=== PATIENT | male | born 1990 | race Caucasian/White ===

== ENCOUNTER 2024-05-18 09:15 | Outpatient (AMB) | payer OTHER, SELFPAY ==
--- NOTE | 2024-05-18 09:20 | MHC.PC.OV ---
Vital Signs 05/18/24 09:24 Height 6 ft 1 in Weight 227 lb 6 oz BMI 30.0 BP 120/86 Blood Pressure Location Lt brachial Position Sitting Respiration 14 Pulse 84 Pulse Source Pulse Oximeter Pulse Oximetry (%) 97 Oxygen Delivery Method Room Air Intake Visit Reasons: [employer] / Est. care Intake Note: New patient visit Boiler Blower Required: No Allergies No Known Allergies Allergy (Verified 05/18/24 09:20) Tobacco use date assessed: 05/18/24 Dental Screening Dental Screen Date: 05/18/24 Did you have a dental visit in the last 12 months?: Yes Did you have a dental problem in the last 6 months where you did not have access to dental care?: No Was dental information given to patient?: Patient has dentist HPI HPI Comments History of Present Illness Details 33 year old male with past medical history of GERD, seasonal allergies presenting to [facility] care Was following with [facility]. Recommended PPI, consideration of endoscopy. Has lost some weight purposefully, been trying to eat better. Seasonal allergies: Uses flonase. Had a very severe ear infection last year. ROS see HPI PHYSICAL EXAM: GENERAL: Alert and oriented x 3. NAD EYES: EOMI. Anicteric. HENT: Moist mucous membranes. No scleral icterus. No cervical lymphadenopathy. LUNGS: Clear to auscultation bilaterally. CARDIOVASCULAR: Regular rate and rhythm. No murmur. No JVD. ABDOMEN: Soft, non-tender +bs EXTREMITIES: No edema. Non-tender. SKIN: No rashes or lesions. Warm. NEUROLOGIC: No focal neurological deficits. CN II-XII grossly intact PSYCHIATRIC: Cooperative. 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 1. Little interest or pleasure in doing things: not at all 2. Feeling down, depressed, or hopeless: not at all 3. Trouble falling or staying asleep, or sleeping too much: not at all 4. Feeling tired or having little energy: not at all 5. Poor appetite or overeating: not at all 6. Feeling bad about yourself - or that you are a failure or have let yourself or your family down: not at all 7. Trouble concentrating on things, such as reading the newspaper or watching television: not at all 8. Moving or speaking so slowly that other people could have noticed. Or the opposite - being so fidgety or restless that you have been moving around a lot more than usual: not at all 9. Thoughts that you would be better off or of hurting yourself in some way: not at all Total score: 0 Depression Screening Interpretation: Negative Depression Screening Done: Yes 90111 - PHQ-9 Billing: Yes Source: Developed by Drs. Benson Ramirez, Ria Putnam, Reg Solis and colleagues, with an educational delia from [employer]. Thrive Questionnaire Date Thrive assessed: 05/05/24 I am a: Patient What is your living situation today?: I have a steady place to live Within the past 12 months, did the food you bought not last and you didn't have the money to get more?: Never true Within the past 12 months, did you worry whether your food would run out before you got money to buy more?: Never true Do you have trouble paying for medicines?: No Do you have trouble getting transportation to medical appointments?: No Do you have trouble paying your heating and electricity bill?: No Do you have trouble taking care of your child, family member or friend?: No Do you have trouble with day-to-day activities such as bathing, preparing meals, shopping, managing finances, etc.?: No Are you currently unemployed and looking for a job?: No Are you interested in more education?: No Please select the resources that you would like help with: None Currently or been in a relationship where the following occur: No concerns reported THRIVE Score: 0 AUDIT C Alcohol Use Questionnaire (AUDIT-C) 1. How often do you have a drink containing alcohol?: Monthly or less 2. How many drinks containing alcohol do you have on a typical day when you are drinking?: 5 or 6 3. How often do you have six or more drinks on one occasion?: Never Total Score: 3 Physical exam (Primary Care) Vital Signs: Last Vital Signs Pulse 84 05/18/24 09:24 Resp 14 05/18/24 09:24 BP 120/86 05/18/24 09:24 Pulse Ox 97 05/18/24 09:24 Oxygen Delivery Method Room Air 05/18/24 09:24 BMI result Body Mass Index 30.0 Tobacco/Smoking Status: Tobacco use Status Tobacco use date assessed 05/18/24 05/18/24 09:28 Patient Tobacco Use Status Former Tobacco user 05/18/24 09:38 e-Cigarette/Vaping Use Former Use 05/18/24 09:38 PHQ-9: PHQ-9 Score PHQ-9: Total score 0 05/18/24 09:38 Depression Screening Interpretation: Negative Thrive Assessment: Date of Thrive Assessment Date Thrive assessed 05/05/24 05/18/24 09:21 Currently or been in a relationship where the following occur: No concerns reported Coding Level of Care Code New Pt Level 4 (60813) Complex EM visit Add On G2211 Diagnoses Encounter to establish care Z76.89 Gastroesophageal reflux disease, unspecified whether esophagitis present K21.9 Esophagitis presence: esophagitis presence not specified Additional Codes PHQ-9 - 33323 - PHQ-9 Billing: Yes ([id number]) Assessment & Plan Assessment & Plan (1) Encounter to establish care: Code(s): Z76.89 - Persons encountering health services in other specified circumstances Category: Medical Plan: 33 year old male to establish care. past medical, surgical, social and family history reviewed. chart updated (2) GERD (gastroesophageal reflux disease): Code(s): K21.9 - Gastro-esophageal reflux disease without esophagitis Category: Medical Qualifiers: Esophagitis presence: esophagitis presence not specified Qualified Code(s): K21.9 - Gastro-esophageal reflux disease without esophagitis Plan: check stool h pylori. consider endoscopy. continue ppi Orders: Orders Complete Blood Count Auto Diff Today J30.2 - Other seasonal allergic rhinitis, Z13.0 - Encounter for screening for diseases of the blood and blood-forming organs and certain disorders involving the immune mechanism, Z13.220 - Encounter for screening for lipoid disorders, Z13.228 - Encounter for screening for other metabolic disorders Lipid Panel Today J30.2 - Other seasonal allergic rhinitis, Z13.0 - Encounter for screening for diseases of the blood and blood-forming organs and certain disorders involving the immune mechanism, Z13.220 - Encounter for screening for lipoid disorders, Z13.228 - Encounter for screening for other metabolic disorders Comprehensive Met. Panel Today J30.2 - Other seasonal allergic rhinitis, Z13.0 - Encounter for screening for diseases of the blood and blood-forming organs and certain disorders involving the immune mechanism, Z13.220 - Encounter for screening for lipoid disorders, Z13.228 - Encounter for screening for other metabolic disorders H pylori Ag Stool Today K21.9 - Gastro-esophageal reflux disease without esophagitis Medications: New fluticasone propionate 50 mcg/actuation (Flonase Allergy Relief) administer into each nostril 2 sprays intranasal DAILY 16 grams 3RF
[2024-05-18 09:24] VITALS: BP 120/86; PULSE 84; RESP 14; O2SAT 97
== END 2024-05-18 09:55 | disposition home or self-care (01) ==
PROVIDERS: PCP Internal Medicine; Visit Provider Internal Medicine
DX: Z76.89 Persons encountering health services in other specified circumstances (principal); K21.9 Gastro-esophageal reflux disease without esophagitis

== ENCOUNTER → 2024-05-18 09:15 | Outpatient (BNVA) | payer OTHER, SELFPAY | PROVIDERS: PCP Internal Medicine; Visit Provider Internal Medicine | DX: K21.9 Gastro-esophageal reflux disease without esophagitis (principal); J30.2 Other seasonal allergic rhinitis; Z13.0 Encounter for screening for diseases of the blood and blood-forming organs and certain disorders involving the immune mechanism; Z76.89 Persons encountering health services in other specified circumstances; Z13.228 Encounter for screening for other metabolic disorders; Z13.220 Encounter for screening for lipoid disorders | CPT/HCPCS: 96127 ==

== ENCOUNTER 2024-05-18 09:57 | Outpatient (REF) | payer OTHER, SELFPAY ==
[2024-05-18 11:08] LABS: MANUAL DIFF FLAG NO
[2024-05-18 11:15] LABS: Basophils Absolute Auto 0.1 X10*3/uL (0.0-0.2); Eosinophils Percent Auto 0.7 % (0-4); Hematocrit 45.9 % (42.0-52.0); Hemoglobin 15.9 g/dl (14.0-18.0); Imm Gran Abs Auto 0.01 X10*3/uL (0.00-0.03); Imm Gran Pct Auto 0.2 % (0.0-0.4); Lymphocytes Absolute Auto 2.1 X10*3/uL (1.2-4.9); Lymphocytes Percent Auto 34.9 % (20-40); Mean Corpuscular HGB Conc 34.6 g/dl (31.0-36.0); Mean Corpuscular Hemoglobin 30.2 pg (27.0-33.0); Mean Corpuscular Volume 87.3 fL (80.0-98.0); Mean Platelet Volume 10.3 fL (9.4-12.4); Monocytes Absolute Auto 0.5 X10*3/uL (0.1-1.2); Monocytes Percent Auto 8.5 % (2-11); Neutrophils Absolute Auto 3.3 x10*3/uL (2.0-8.3); Neutrophils Percent Auto 54.7 % (45-73); Platelet Count 263 X10*3/uL (160-400); Red Blood Count 5.26 X10*6/uL (4.60-5.80); Red Cell Distribution Width 11.9 % (11.0-16.0)
[2024-05-18 11:43] LABS: Alanine Aminotransferase 49 U/L (0-40); Albumin Level 4.7 g/dL (3.5-5.0); Alkaline Phosphatase 61 U/L (39-117); Anion Gap 11 (12-20); Aspartate Amino Transferase 29 U/L (5-37); Bilirubin Total 0.6 mg/dL (0.0-1.0); Blood Urea Nitrogen 19 mg/dL (9-16); Calcium 9.9 mg/dL (8.4-10.2); Carbon Dioxide 27 mmol/L (22-29); Chloride 108 mmol/L (96-108); Cholesterol 180 mg/dL (<200); Estimated Glomerular Filt Rate > 60; Glucose Random 92 mg/dL (60-115); HDL Cholesterol 42 mg/dL (>40); LDL Cholesterol Calculated 125 mg/dL (<100); Potassium 4.3 mmol/L (3.3-5.1); Sodium 142 mmol/L (135-145); Total Protein 7.9 g/dL (6.5-8.0); Triglycerides 65 mg/dL (<150)
== END 2024-05-18 09:58 | disposition home or self-care (01) ==
LOC: HO.WFDLDS 09:57
PROVIDERS: Visit Provider Internal Medicine
DX: Z13.0 Encounter for screening for diseases of the blood and blood-forming organs and certain disorders involving the immune mechanism (principal); Z13.220 Encounter for screening for lipoid disorders; Z13.228 Encounter for screening for other metabolic disorders; J30.2 Other seasonal allergic rhinitis; K21.9 Gastro-esophageal reflux disease without esophagitis
CPT/HCPCS: 36415; 80053; 80061; 85025

== ENCOUNTER 2024-06-03 | Outpatient (REF) | payer OTHER, SELFPAY ==
--- OUTSIDE RECORDS SUMMARY | 2024-06-08 16:24 | XMS_ITS | Data Portability ---
Author Organization [facility], [id number] Address [address] [place] [address] Assessment No assessment recorded. Plan of Treatment Reminders Order Date Submit Date Provider Last Modified By Organization Details Last Modified Time Details Appointments None recorded. Lab None recorded. Referral None recorded. Procedures None recorded. Surgeries None recorded. Imaging None recorded. Medication Orders Flonase Allergy Relief 50 mcg/actuati on nasal spray,suspe nsion 2023 024 [email or web address] [facility]/Pharmacy #[id number], [address] [place], [address], 4 13:50:07 prednisone 50 mg tablet 2023 024 [facility]/Pharmacy #1234, [address] [place], [address], 4 08:49:09 Augmentin 875 mg-125 mg tablet 2023 024 [facility]/Pharmacy #1234, [address] [place], [address], 4 08:39:05 Patient TargetsNo targets recorded. Patient Instructions Encounter Date Encounter Id Patient Instructions Last Modified By Organization Details Last Modified Time 10/17/2023 [id number] Acute Sinusitis: Care Instructions silvia Not available 10/17/2023 08:39:03 10 things to do when you have covid-19 silvia Not available 10/17/2023 08:39:02 Reason for Referral None Reported. Problems Name Problem SNOMED Code Status Onset Date Resolution Date Notes Provider Name and Address Organization Details Recorded Time Gastroesophag eal reflux disease 232433020 Active JOSE LUIS CHERI maria, [place] - [facility] 4 08:19:02 Acute sinusitis 75257861 Active 2023 Paty Perez, ALEKSANDRA [address] , [place], [address], [place] - [facility] 4 08:35:38 Acute bilateral otitis media 258851512 Active 2023 Paty Perez NP [address] , [place], [address], [place] - [facility] 4 08:35:49 Post-acute COVID-19 3402752069 Active 2023 Paty Perez, ALEKSANDRA [address] , [place], [address], [place] - [facility] 4 08:36:18 Problem Notes None recorded. Medical Equipment None Reported. Allergies No known drug allergies Medications Name Sig Start Date Stop Date Status Note LastModified by Organization Details LastModified Time omeprazole 40 mg capsule,israel yed release TAKE 1 CAPSULE 30-60 MINUTES BEFORE BREAKFAST active Not Available Not Available No t Available famotidine 20 mg tablet active Not Available Not Available Not Available prednisone 50 mg tablet TAKE 1 TABLET EVERY DAY BY ORAL ROUTE FOR 5 DAYS, FOR SINUSITIS. active Not Available Not Available N ot Available nystatin 100,000 unit/gram topical powder APPLY THREE TIMES DAILY TO RASH. active Not Available Not Available No t Available ondansetron 4 mg disintegrati ng tablet active Not Available Not Available No t Available fluticasone propionate 50 mcg/actuatio n nasal spray,suspen cecille SPRAY 1 SPRAY BY INTRANASAL ROUTE EVERY DAY FOR 10 DAYS active Not Available Not Available No t Available amoxicillin 875 mg-potassium clavulanate 125 mg tablet TAKE 1 TABLET EVERY 12 HOURS BY ORAL ROUTE FOR 10 DAYS, FOR EAR INFECTION. active Not Available Not Available N ot Available omeprazole active Not Available Not Av ailable Not Available Vitals Date Recorded Body height Body mass index (BMI) Body weight Oxygen saturation Oxygen saturation in Arterial blood by Pulse oximetry Heart rate Respiratory rate Body temperature Systolic blood pressure Diastolic blood pressure Provider Name and Address Organization Details Last Updated DateTime 4 185.42 cm 29 kg/m2 43525.3 2 g 98 % 98 % 82 /min 18 /min 98 [degF] 128 mm[Hg] 82 mm[Hg] JOSE LUIS Aguillon [facility] 4 08:20:45 Social History Question Answer Notes LastModified by Organizat ion Details LastModified Time Tobacco Smoking Status Never Smoker KEVEN Caba [facility] 10/17/2023 08:19:10 What Is Your Level Of Alcohol Consumption? Occasional Information not available 10/17/2023 Do You Use Any Illicit Or Recreational Drugs? No Information not available 10/17/2023 Do You Or Have You Ever Used Any Other Forms Of Tobacco Or Nicotine? No Information not available 10/17/2023 Sex: Unknown Functional Status None recorded. Mental Status None recorded. Family History Nothing Reported. Medical History No medical history recorded. Immunizations Vaccine Type Date Status Note Provider Nam e and Address Organization Details Recorded Time COVID-19, mRNA, LNP-S, PF, 100 mcg/0.5mL dose or 50 mcg/0.25mL dose 07/08/2020 completed KEVEN Caba - [facility] 10/17/2023 08:14:31 COVID-19, mRNA, LNP-S, PF, 100 mcg/0.5mL dose or 50 mcg/0.25mL dose 08/06/2020 completed KEVEN Caba - [facility] 10/17/2023 08:14:31 Past Encounters Encounter ID Performer Location Encounter Start Date Encounter Closed Date Diagnosis/Indication Diagnosis SNOMED-CT Code Diagnosis ICD10 Code Diagnosis Note [id number] [address] [place] [address] 10/10/2017 15:53:05 10/10/2017 17:20:05 [id number] [address] [place] [address] 12/11/2016 12:10:38 12/11/2016 13:15:36 [id number] [address] [place] [address] 03/10/2016 08:21:28 03/10/2016 08:47:59 [id number] Paty Perez, ALEKSANDRA [address] [address] 10/17/2023 08:04:57 10/17/2023 08:40:08 Acute sinusitis [id number] J01.90 Based on your Presentati on, Exam, and Lab Testing you are being diagnosed with otitis media Antibiotic s will typically take 4-5 days to start to work with symptom improvemen t. The following are my other recommenda tions to help with symptoms and is important for this diagnosis: 1. Take Ibuprofen or Tylenol if you do not have any allergies to these medication s. If you take a blood thinner you should not take NSAIDS like Ibuprofen. These medication will help with the inflammati on in your respirator y tract which should help the cough. (I would alternate between Tylenol 650 mg and your Ibuprofen 600 mg every 4 hours)2. Do not take any Cold Medication s that have a Decongesta nt in it - this will dry out your throat and make the sore throat worse.3. Drinking Hot Tea with honey can help coat and soothe your throat. I would be seen again if you develop any of the following symptoms.1 . Fever > 101.02. Stiff neck - where you can't turn your neck3. Trouble swallowing your saliva - drooling4. Swelling of a lymph node in your throat that is painful to touch5. Difficulty breathing6 . Severe Headache Thank you for using [email or web address] today, please feel free to contact our office if you have any questions or concerns. Acute bila teral otitis media [id number] H66.93 Post-acute COVID-19 1119 125058 U09.9 Health Concerns Section Related Observation LastModified by Organization Detai ls LastModified Time None Recorded Concern Status LastModified by Organization Details LastModified Time None Recorded Advance Directives Directive None Recorded Payers Encounter Date Sequence Insurance Name Policy Number Policy Harrison Covered Member ID Harrison Member ID Guarantor Name 03/10/2016 1 [facility] [id number] Alok Sotelo [id number] 1 Alok Sotelo 12/11/2016 1 [facility] [id number] Alok Sotelo [id number] 1 Alok Sotelo 10/10/2017 1 [facility] [id number] Alok Sotelo [id number] 1 Alok Sotelo 10/17/2023 1 [facility] [id number] Alok Sotelo [id number] Alok Sotelo Notes Date Note Type Note Provider Name and Address Organization Details Recorded Time 10/17/2023 text/html Ear Pain Brief HPIReported bypatient.Location :bilateral Onset/Timing:sudde n onset Duration:constant pain Quality:no itching; no discharge from the ears; no burning;throbbing pain Severity:no fever Context:no recent ear infection; no recent swimming;recent URI Alleviating factors:NSAIDs Aggravating factors:sinus infections Associated Symptoms:no cough; no jaw popping or clicking; no discharge from ear; no sense of fullness; no jaw pain; no tinnitus;nasal congestion;nasal discharge;sore throat;decreased hearing;muffled hearing Had covid on October 05. Now having neck tightness, light headedness, head congestion started yesterday. Paty Perez NP [address] [place], [address], [place] - [facility] 10/30/2023 13:55:15
--- OUTSIDE RECORDS SUMMARY | 2024-06-08 16:24 | XMS_ITS | Patient Health Record ---
Author Organization [facility] [place] Address [address] [place] [address] Care Team Providers Care Traffic Circuit Engineer Name Role Phone ADA PORFIRIO Primary Care Provider JHONY Bustillo [phone] Allergies No Known Allergies Results Component Value Reference Range Notes Urine Culture Reviewed date:08/16/2023 12:19:18 PM Interpretation: Performing Lab: Notes/Report: No Growth after 48 Hrs RESULT Not Known CURRENT ANTIBOTIC Random Void Source FINAL RPT Microbiology results Urinalysis Complete w/Micro Reviewed date:08/16/2023 12:19:18 PM Interpretation: Performing Lab: Notes/Report: U Clarity Clear U Color Yellow Yellow SG 1.01 U PH 6 5.0-7.5 U WBC neg neg U Nitrite neg neg U PRO neg neg U GLU neg neg U Ketones neg neg U Urobilinogen 0.2 mg/dL U Bili neg neg U RBC neg neg UWBC 0-5 0-5 /hpf URBC 0-2 0-2 /hpf UEPI few UBAC none seen UCRYSTAL Not present UCAST Not present Reason For Referral No Information Medications Medication SIG (Take, Route, Fr equency, Duration) Notes Start Date End Date Status Omeprazole 40 MG TAKE 1 CAPSULE 30-60 MINUTES BEFORE BREAKFAST Oral for 90 Days Activ e Vital Signs Heart Rate 68 /min 07/26/2023 Blood pressure diastolic 86 mm Hg 07/26/2023 Height 73 in 07/26/2023 Blood pressure systolic 126 mm Hg 07/26/2023 Weight 218 lbs 07/26/2023 BMI 28.76 kg/m2 07/26/2023 Encounters Encounter Location Date Provider Diagnosis [facility] [place] [facility] [place] [address] [place] [address] 07/26/2023 JHONY LALA Scrotal pain N50.82 and Elevated blood pressure reading R03.0 [facility] - [place] [address] [place] [address] 2023 JHONY LALA Assessments Encounter Date Diagnosis (ICD Code) Assessment Notes Treatment Notes Treatment Clinical Notes Section Notes 07/26/2023 Scrotal pain (ICD-10 - N50.82) presents due to testicular pain. I advised him to proceed with conservative management including doing a daily sitz-bath, wearing compressing shorts for scrotal support, and taking NSAIDs for discomfort/pain in his groin area. We will send for a urinalysis and urine culture today. If the urine culture is positive, then my office will call in the appropriate antibiotics and the patient will receive a phone call. U/A, culture done by PT first per patient, were normal. U/s done at [facility] - mild left varicocele. I have reviewed the images and made an independent assessment. Discussed that the mild left varicocele is unlikely to be the cause of his scrotal pain, which is more likely referred given normal testicles on u/s. He also has a history of back issues, and is scheduling followup with his provider for these. 07/26/2023 Elevated blood pressure reading (ICD-10 - R03.0) Patient has blood pressure measured, and above normal. He is referred back to his primary care doctor for management. 07/26/2023 Other Patient BMI not ed as above normal, and referred back to PCP for counselling and treatment. Plan Of Treatment No Information Insurance Providers Payer Name Payer Address Payer Phone Subscriber Number Group Number Insured Name Patient Relationship to Insured Coverage Start Date Coverage End Date [employer] [address] [place] [employer] [phone] [id number] Alok Domínguez Self - patient is the insured Medical (General) History Medical History History ICD Code Esophageal reflux
--- OUTSIDE RECORDS SUMMARY | 2024-06-08 16:24 | XMS_ITS ---
Author Organization [facility] Formerly [facility] Address [address] [facility] [address] [place] [address] Care Team Providers Care Shipping Associate Name Role Phone JANNETChuyPORFIRIO Primary Care Provider JHONY Bustillo [phone] Allergies No Known Allergies REASON FOR VISIT Testicular Pain Medications Medication SIG (Take, Route, Fr equency, Duration) Notes Start Date End Date Status Omeprazole 40 MG TAKE 1 CAPSULE 30-60 MINUTES BEFORE BREAKFAST Oral for 90 Days Activ e Vital Signs Heart Rate 68 /min 07/26/2023 Blood pressure systolic 126 mm Hg 07/26/19 24 Blood pressure diastolic 86 mm Hg 024 Height 73 in 07/26/2023 Weight 218 lbs 07/26/2023 BMI 28.76 kg/m2 07/26/2023 Encounters Encounter Location Date Provider Diagnosis [facility] [address] [facility] [address] [place] [address] 07/26/2023 JHONY JUAREZ Scrotal pain N50.82 and Elevated blood pressure reading R03.0 Assessments Encounter Date Diagnosis (ICD Code) Assessment [...] per patient, were normal. U/s done at [facility] - mild left varicocele. I have reviewed [...] for counselling and treatment. Plan Of Treatment Treatment Notes Assessment Notes Scrotal pain presents due to testicular pain. I advised [...] per patient, were normal. U/s done at [facility] - mild left varicocele. I have reviewed the images and made an independent assessment. Discussed that the mild left varicocele is unlikely to be the cause of his scrotal pain, which is more likely referred given normal testicles on u/s. He also has a history of back issues, and is scheduling followup with his provider for these. Elevated blood pressure reading Patient has blood pressure measured, and above normal. He is referred back to his primary care doctor for management. Other Patient BMI noted as above normal, and referred back to PCP for counselling and treatment. Next Appt Details Follow Up: prn, Reason: Progress Notes * Alok DOMÍNGUEZDOB: [birth year] (33 yo M)Acc No.[id number]:07/26/2023 Progress Notes Patient:?Alok DOMÍNGUEZ Provider:?Jhony Juarez MD :1990???Age:33 Y???Sex:Male Chuck e:07/26/2023 Address[address] [id number] Pcp:PORFIRIO CABALLERO Subjective: * Chief Complaints: * ???Testicular Pain * HPI: ???Scrotal/Testicular Issues:?33yM presents today for evaluation of scrotal pain. ???BPH screening:?IPSS Questionnaire?Date?07/26/2023 ?IPSS Total?5 ?incomplete emptying score?0 ?frequency score?2 ?intermittency score?1 ?urgency score?0 ?weak stream score?0 ?straining score?0 ?nocturia score?2 ?QoL/bother score?1 ???Erectile Dysfunction screening:?IIEF/KODY Questionnaire?Date?07/26/2023 ?IIEF/KODY Total?23 ?Difficulty OBTAINING erection?4 ?HARD enough?5 ?Able to MAINTAIN?4 ?Difficulty MAINTAINING erection?5 ?Satisfactory?5 * ROS:?11 system Review of Systems completed in the chart and all pertinent positives and negatives reviewed with the patient ... ts. * Medical History:? * Surgical History:?Denies Pas t Surgical History * Hospitalization/Major Diagno stic Procedure:?Denies Past Hospitalization * Family History:?Father: dece ased.?Mother: alive.? * Social History:?Smoking: no?.?Recreational drug use: no. ???Exercise: yes, 4-5 times per week. ???Caffeine: yes, frequency: 2 coffee per day. ???Alcohol: socially?Type: , Frequency: ,Years: , Determination:.?Sexually active: yes. ???Occupation: yes. * Medications:?TakingOmeprazol e 40 MG Capsule Delayed Release TAKE 1 CAPSULE 30-60 MINUTES BEFORE BREAKFAST Oral Medication List reviewed and reconciled with the patientTaking Omeprazole 40 MG Capsule Delayed Release TAKE 1 CAPSULE 30-60 MINUTES BEFORE BREAKFAST Oral Medication List reviewed and reconciled with the patient * Allergies:?N.K.D.A.no[Allerg ies Verified] Objective: * Vitals:?HR:68, BP:126/86mm H g, Ht: 73, Wt: 218 lbs, BMI:28.76Index. * Physical Examination:?GENITOURINARY - MALE:?General Appearance:?alert, oriented, no apparent distress.?Vas?normal bilaterally.?Abdomen:?soft, non-tender, no mass, no hernia.?External genitals:?normal.?Penis:?normal.?Urethral meatus:?normal.?Scrotum:?normal, no lesions.?Testicles:?normal.?Epididymis:?normal.?Lymphatic:?no inguinal adenopathy.?HEENT:?normocephalic, atraumatic.?Lungs:?Symmetrical chest excursion, effort normal bilaterallly.?Skin:?no rashes.?Extremities:?no edema, clubbing or cyanosis.?Hernia:?none.? Assessment: * Assessment: 1.?Scrotal pain - N50.82 (Pr imary)?2.?Elevated blood pressure reading - R03.0? Plan: * Treatment: 2.?Elevated blood pressure r eading? Notes: Patient has blood pressure measured, and above normal. He is referred back to his primary care doctor for management. ?? 3.?Others? Notes: Patient BMI noted as above normal, and referred back to PCP for counselling and treatment. ?? * Procedure Codes:? VITAL SIGNS [id number] CALC BMI ABVE UP MOISES&F/U PLAN [id number] PREHTN/HTN BP DOC INDCD F/U DOC * Follow Up:?prn * Billing Information: * Visit Code:? 94294 Office Consultation Level 3. * Procedure Codes:? VITAL SIGNS RECORDED. G8417 CALC BMI ABVE UP MOISES&F/U PLAN DOC. G8950 PREHTN/HTN BP DOC INDCD F/U DOC. * Sign off status: Completed true * Provider:?Jhony Juarez MD Date:?2023 Generated for Enedina kaplan/Erin/eTvitaliysmitting on:?06/08/2024 04:24 PM EST History and Physical Notes * HPI (History of Present Illness) Category Sub-Category Detail Notes Category Not es BPH screening IPSS Questionnaire Date: 07/26/2023 IPSS Total: 5 incomplete emptying score: 0 frequency score: 2 intermittency score: 1 urgency score: 0 weak stream score: 0 straining score: 0 nocturia score: 2 QoL/bother score: 1 Erectile Dysfunction screening IIEF/KODY Questionnaire Chuck e: 07/26/2023 IIEF/KODY Total: 23 Difficulty OBTAINING erection: 4 HARD enough: 5 Able to MAINTAIN: 4 Difficulty MAINTAINING erection: 5 Satisfactory: 5 Physical Examination Category Sub-Category Detail Notes Section Note s GENITOURINARY - MALE External genitals: normal Testicles: normal Hernia: none General Appearance: alert, oriented, no apparent distress Abdomen: soft, non-tender, no mass, no hernia Penis: normal Urethral meatus: normal Scrotum: normal, no lesions Epididymis: normal Lymphatic: no inguinal adenopat hy HEENT: normocephalic, atrau matic Lungs: Symmetrical chest ex cursion, effort normal bilaterallly Skin: no rashes Extremities: no edema, clubbing o r cyanosis Vas normal bilaterally
--- OUTSIDE RECORDS SUMMARY | 2024-06-08 16:24 | XMS_ITS ---
Author Organization [facility] Address [address] [facility] [address] [place] [address] Care Team Providers Care Proof Technician Helper Name Role Phone ADA PORFIRIO Primary Care Provider JHONY Bustillo [phone] REASON FOR VISIT SONO 07/22 Encounters Encounter Location Date Provider Diagnosis [facility] [address] [facility] [address] [place] [address] 2023 JHONY LALA Plan Of Treatment No Information Progress Notes * Bertram SOTELOOB:1990 (33 yo M)Acc No.[id number] Patient:?Alok SOTELO :1990???Age:32 Y???Sex:Male Address:[address] [place] [address], [address] * true * Date:? Generated for Yani rosaura/Erin/eTransmitting on:?06/08/2024 04:23 PM EST
== END 2024-06-03 00:01 | disposition home or self-care (01) ==
LOC: HO.LNP
PROVIDERS: Visit Provider Internal Medicine
DX: K21.9 Gastro-esophageal reflux disease without esophagitis (principal)
CPT/HCPCS: 87338

== ENCOUNTER 2025-03-22 14:06 | Outpatient (REF) | payer OTHER, SELFPAY ==
[2025-03-22 18:07] LABS: MANUAL DIFF FLAG NO
[2025-03-22 18:14] LABS: Hematocrit 48.1 % (42.0-52.0); Hemoglobin 16.6 g/dl (14.0-18.0); Imm Gran Abs Auto 0.01 X10*3/uL (0.00-0.03); Imm Gran Pct Auto 0.1 % (0.0-0.4); Lymphocytes Absolute Auto 3.3 X10*3/uL (1.2-4.9); Mean Corpuscular HGB Conc 34.5 g/dl (31.0-36.0); Mean Corpuscular Hemoglobin 29.6 pg (27.0-33.0); Mean Corpuscular Volume 85.7 fL (80.0-98.0); NRBC Abs Auto 0.000 X10*3/uL (0.0-0.012); NRBC Pct Auto 0.0 /100WBC (0.0-0.2); Platelet Count 266 X10*3/uL (160-400); Red Blood Count 5.61 X10*6/uL (4.60-5.80); White Blood Count 7.8 X10*3/uL (4.8-10.8)
[2025-03-22 18:35] LABS: Alanine Aminotransferase 48 U/L (0-40); Albumin Level 5.2 g/dL (3.5-5.0); Alkaline Phosphatase 59 U/L (39-117); Anion Gap 13 (12-20); Aspartate Amino Transferase 28 U/L (5-37); Blood Urea Nitrogen 17 mg/dL (9-16); Calcium 10.0 mg/dL (8.4-10.2); Carbon Dioxide 24 mmol/L (22-29); Chloride 105 mmol/L (96-108); Cholesterol 198 mg/dL (<200); Estimated Glomerular Filt Rate > 60; HDL Cholesterol 48 mg/dL (>40); Potassium 4.0 mmol/L (3.3-5.1); Sodium 138 mmol/L (135-145); Total Protein 7.9 g/dL (6.5-8.0); Triglycerides 213 mg/dL (<150)
== END 2025-03-22 14:07 | disposition home or self-care (01) ==
LOC: HO.WFDLDS 14:06
PROVIDERS: PCP Internal Medicine; Visit Provider Internal Medicine
DX: Z00.00 Encounter for general adult medical examination without abnormal findings (principal); Z23 Encounter for immunization; Z13.220 Encounter for screening for lipoid disorders; Z13.228 Encounter for screening for other metabolic disorders; K21.9 Gastro-esophageal reflux disease without esophagitis; J30.2 Other seasonal allergic rhinitis
CPT/HCPCS: 36415; 80053; 80061; 85025; 90471; 90656

== ENCOUNTER 2025-03-22 14:06 | Outpatient (AMB) | payer OTHER, SELFPAY ==
--- NOTE | 2025-03-22 14:25 | A.OFFPC_ITS ---
Vital Signs 03/22/25 14:26 Height 6 ft 1 in Weight 223 lb BMI 29.4 BP 118/88 Blood Pressure Location Rt brachial Position Sitting Respiration 14 Pulse 76 Pulse Source Pulse Oximeter Pulse Oximetry (%) 98 Oxygen Delivery Method Room Air Intake Visit Reasons: Physical rescheduled from 02/05 Allergies No Known Allergies Allergy (Verified 05/18/24 09:20) Tobacco use date assessed: 03/22/25 Dental Screening Dental Screen Date: 05/18/24 HPI HPI Comments History of Present Illness Details 34 year old male with past medical histo ry of GERD, seasonal allergies presenting for CPE Was following with [facility]. Recommended PPI, consideration of endoscopy. Has lost some weight purposefully, been trying to eat better. If he behaves with diet he can go off PPI, currently on due to some recent dietary indiscretion Seasonal allergies: Uses flonase, zyrtec which seems to decrease incidence of ear infections. Flu shot today ROS see HPI PHYSICAL EXAM: GENERAL: Alert and oriented x 3. NAD EYES: EOMI. Anicteric. HENT: Moist mucous membranes. No scleral icterus. No cervical lymphadenopathy. LUNGS: Clear to auscultation bilaterally. CARDIOVASCULAR: Regular rate and rhythm. No murmur. No JVD. ABDOMEN: Soft, non-tender +bs EXTREMITIES: No edema. Non-tender. SKIN: No rashes or lesions. Warm. NEUROLOGIC: No focal neurological deficits. CN II-XII grossly intact PSYCHIATRIC: Cooperative. 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 Current occupational exposures/hazards: No Cognitive needs: No Hearing needs: No Vision needs: No Questionnaire Thrive Questionnaire Date Thrive assessed: 05/05/24 I am a: Patient What is your living situation today?: I have a steady place to live Within the past 12 months, did the food you bought not last and you didn't have the money to get more?: Never true Within the past 12 months, did you worry whether your food would run out before you got money to buy more?: Never true Do you have trouble paying for medicines?: No Do you have trouble getting transportation to medical appointments?: No Do you have trouble paying your heating and electricity bill?: No Do you have trouble taking care of your child, family member or friend?: No Do you have trouble with day-to-day activities such as bathing, preparing meals, shopping, managing finances, etc.?: No Are you currently unemployed and looking for a job?: No Are you interested in more education?: No Please select the resources that you would like help with: None Currently or been in a relationship where the following occur: No concerns reported THRIVE Score: 0 AUDIT C Alcohol Use Questionnaire (AUDIT-C) 1. How often do you have a drink containing alcohol?: Monthly or less 2. How many drinks containing alcohol do you have on a typical day when you are drinking?: 1 or 2 3. How often do you have six or more drinks on one occasion?: Never Total Score: 1 Physical exam (Primary Care) Vital Signs: Last Vital Signs Pulse 76 03/22/25 14:26 Resp 14 03/22/25 14:26 BP 118/88 03/22/25 14:26 Pulse Ox 98 03/22/25 14:26 Oxygen Delivery Method Room Air 03/22/25 14:26 BMI result Body Mass Index 29.4 Tobacco/Smoking Status: Tobacco use Status Tobacco use date assessed 03/22/25 03/22/25 14:28 Patient Tobacco Use Status Former Tobacco user 03/22/25 14:28 e-Cigarette/Vaping Use Former Use 03/22/25 14:28 Thrive Assessment: Date of Thrive Assessment Date Thrive assessed 05/05/24 03/22/25 14:28 Currently or been in a relationship where the following occur: No concerns reported Office Procedures Flu Questionnaire Does the patient have a severe egg allergy?: No Does the patient have severe life threatening allergies?: No Does the patient have a fever or illness today?: No Has the patient ever had Guillain-Thurston Syndrome?: No Has the patient ever had any past reaction to a flu shot?: No Immunizations Fluarix [id number] (PF) 45 mcg (15 mcg x 3)/0.5 mL IM syringe Performing Provider: Prudence Mena MD Performing Location: [facility] Administered by: Bibiana Juan CMA on 03/22/25 16:22 Dose Route Admin Location Dispensed Lot Number Expiration Date NDC [employer] 0.5 mL IM Left Deltoid 0.5 mL [id number] 10/05/25 [id number] [employer] VIS Given Date VIS Provided VIS Publication Date 03/22/25 Single Vaccine 24 Eligibility Eligibility Date Funding Source Not [facility] Eligible 03/22/25 Private Coding Level of Care Code Est Pt Prev Care 18-39y(94897) Diagnoses Physical exam Z00.00 Seasonal allergies J30.2 Gastroesophageal reflux disease, unspecified whether esophagitis present K21.9 Esophagitis presence: esophagitis presence not specified Assessment & Plan Assessment & Plan (1) Physical exam: Code(s): Z00.00 - Encounter for general adult medical examination without abnormal findings (2) Seasonal allergies: Code(s): J30.2 - Other seasonal allergic rhinitis Category: Medical (3) GERD (gastroesophageal reflux disease): Code(s): K21.9 - Gastro-esophageal reflux disease without esophagitis Category: Medical Qualifiers: Esophagitis presence: esophagitis presence not specified Qualified Co de(s): K21.9 - Gastro-esophageal reflux disease without esophagitis Plan CPE Interval history reviewed Preventive measures for age discussed GERD controlled by PPI Allergies-improved control Orders: Orders Lipid Panel 03/22/25 K21.9 - Gastro-esophageal reflux disease without esophagitis, Z00.00 - Encounter for general adult medical examination without abnormal findings, Z13.220 - Encounter for screening for lipoid disorders, Z13.228 - Encounter for screening for other metabolic disorders Complete Blood Count Auto Diff 03/22/25 K21.9 - Gastro-esophageal reflux disease without esophagitis, Z00.00 - Encounter for general adult medical examination without abnormal findings, Z13.220 - Encounter for screening for lipoid disorders, Z13.228 - Encounter for screening for other metabolic disorders Comprehensive Met. Panel 03/22/25 K21.9 - Gastro-esophageal reflux disease without esophagitis, Z00.00 - Encounter for general adult medical examination without abnormal findings, Z13.220 - Encounter for screening for lipoid disorders, Z13.228 - Encounter for screening for other metabolic disorders Influenza [id number] Immunization 03/22/25 Z23 - Encounter for immunization Medications: Refilled fluticasone propionate 50 mcg/actuation (Flonase Allergy Relief) administer into each nostril 2 sprays intranasal DAILY 16 grams 3RF omeprazole 40 mg PO DAILY 90 caps 3RF
[2025-03-22 14:26] VITALS: BP 118/88; PULSE 76; RESP 14; O2SAT 98; BMI 29.4
--- OUTSIDE RECORDS SUMMARY | 2025-03-22 20:33 | XMS_ITS | Patient Health Record ---
Author Organization [facility] Address [address] [place] [address] Care Team Providers Care Syruper Name Role Phone PORFIRIO CABALLERO Primary Care Provider JHONY Bustillo [phone] Allergies No Known Allergies Reason For Referral No Information Medications Medication SIG (Take, Route, Fr equency, Duration) Notes Start Date End Date Status Omeprazole 40 MG TAKE 1 CAPSULE 30-60 MINUTES BEFORE BREAKFAST Oral; Duration: 90 Days Active Plan Of Treatment No Information Insurance Providers Payer Name Payer Address Payer Phone Subscriber Number Group Number Insured Name Patient Relationship to Insured Coverage Start Date Coverage End Date [employer] [address] [place] [address] [id number] Alok Sotelo Self - patient is the insured Medical (General) History Medical History History ICD Code Esophageal reflux
--- OUTSIDE RECORDS SUMMARY | 2025-03-22 20:34 | XMS_ITS | Clinical Summary ---
Author Organization [facility] Address [address] [facility] [address] [place] [id number] Phone Care Team Providers Care Improvement Intern Name Role Phone Prudence Guan MD Primary Care Provider [phone] Allergies No known active allergies Medications diphenhydrAMINE (BENADRYL) 25 mg tablet Take 25 mg by mouth every 6 (six) hours as needed. Active aluminum-magnes ium hydroxide-simet hicone (MAALOX) 200-200-20 mg/5 mL Susp Take 10 mL by mouth every 6 (six) hours as needed. 01/21/2023 Active omeprazole (PRILOSEC) 40 MG capsule Take 1 capsule by mouth 2 (two) times a day. 03/24/2024 Active Active Problems No known active problems Social History Tobacco Use Types Packs/Day Years Used Date Smoking Tobacco: Never Smokeless Tobacco: Never Education Answer Date Recorded Are you interested in more education? Not on james e 05/05/2024 Are you concerned about learning? Not on file 05/05/2024 No 05/05/2024 No 05/05/2024 Digital Access Answer Date Recorded No 05/05/2024 No 05/05/2024 Reliable internet access at home? Not on file 05/05/2024 Device with a working camera? Not on file Sex and Gender Information Value Date Recorded Sex Assigned at Not on file Legal Sex Male 4:03 PM EST Gender Identity Not on file Sexual Orientation Not on file Last Filed Vital Signs Vital Sign Reading Time Taken Comments Blood Pressure 130/84 05/05/2024 4:15 PM EST Pulse 82 05/05/2024 4:15 PM EST Temperature 36.7 C (98 F) 05/05/2024 4:15 PM EST Respiratory Rate 18 05/05/2024 4:15 PM EST Oxygen Saturation 97% 05/05/2024 4:15 PM EST Inhaled Oxygen Concentration - - Weight - - Height - - Body Mass Index - - Plan of Treatment Health Maintenance Due Date Last Done Comments Adult Td,Tdap Booster 1992 DEPRESSION SCREENING 2004 HEPATITIS C SCREENING 2010 HIV ONE-TIME SCREENING (18-6 5 YEARS) 2010 INFLUENZA VACCINE (#1) 2024 COVID-19 VACCINE (2024-2 6 season) 2024 SMOKING STATUS SCREENING (On ce After 26 Yrs) Completed 05/05/2024 HEPATITIS A VACCINES Aged Out No long er eligible based on patient's age to complete this topic HIB VACCINES Aged Out No longer eligi ble based on patient's age to complete this topic MENINGOCOCCAL VACCINES (ACWY) Aged Out No longer eligible based on patient's age to complete this topic MENINGOCOCCAL VACCINES (B) Aged Out N o longer eligible based on patient's age to complete this topic PNEUMOCOCCAL VACCINES (0-49 years) Aged Out No longer eligible based on patient's age to complete this topic Medical Devices Not on file Insurance [employer] PPO CIGNA PPO CIGNA PPO CIGNA PPO CIGNA PPO CIGNA PPO Care Teams Improvement Intern Relationship Specialty Start Date End Date Prudence Guan MD PCP - General Internal Medicine 05/05/24 Additional Source Comments The information contained in this document represents components of the legal health record. It is not the complete legal health record.[facility]"
== END 2025-03-22 14:54 | disposition home or self-care (01) ==
LOC: HO.HMCFM 14:07
PROVIDERS: PCP Internal Medicine; Visit Provider Internal Medicine
DX: Z00.00 Encounter for general adult medical examination without abnormal findings (principal); J30.2 Other seasonal allergic rhinitis; K21.9 Gastro-esophageal reflux disease without esophagitis